=== PATIENT | female | born 1960 | race Caucasian/White ===

== ENCOUNTER → 2020-11-01 | Outpatient (CLI) | payer MEDICARE, OTHER ==
[~2020-11-01] MED LIST: CALCIUM + VITA1 EACH PO; COLACE100 MG PO; DDAVP0.2 MG PO; LACTULOSE20 GM/30 M PO; LIPITOR10 MG PO; MIRALAX17 GM PO; MOBIC15 MG PO; MULTIVITAMINS1 EAC1 PO; PAROXETINE HCL10 MG PO; PROLIA INJ60 MG/1 ML SC; PROTONIX20 MG PO; SEROQUEL XR150 MG PO; TRAZODONE HCL50 MG PO; VITAMIN D250 MCG PO
== END ==
LOC: KOH-I 13:00
DX: R35.0 Frequency of micturition (principal); N32.89 Other specified disorders of bladder
CPT/HCPCS: 76775; 76857

== ENCOUNTER → 2021-07-24 | Outpatient (CLI) | payer MEDICARE, OTHER | LOC: CT 06-27 11:30 | DX: R31.29 Other microscopic hematuria (principal) | CPT/HCPCS: 36415; 82565; 84520; Q9967 ==

== ENCOUNTER → 2021-11-12 | Outpatient (CLI) | payer MEDICARE, OTHER | LOC: MAMO 08:27 | DX: Z12.31 Encounter for screening mammogram for malignant neoplasm of breast (principal); Z13.820 Encounter for screening for osteoporosis; M85.852 Other specified disorders of bone density and structure, left thigh; M85.88 Other specified disorders of bone density and structure, other site | CPT/HCPCS: 77063; 77067; 77080 ==

== ENCOUNTER → 2022-06-05 | Outpatient (CLI) | payer MEDICARE, OTHER ==
[2022-06-05 10:58] LABS: HEMOGLOBIN 13.4 gm/dl (12.3-15.3); RED BLOOD COUNT 4.41 M/UL (4.00-5.10)
[2022-06-05 11:14] LABS: BUN/CREATININE RATIO 25 (0-10)
[2022-06-06 05:08] LABS: THYROXINE (T4) 6.3 ug/dL (4.5-12.0); VITAMIN D, 25-HYDROXY 62.4 ng/mL (30.0-100.0)
== END ==
LOC: LAB 09:42
PROVIDERS: Nurse Practitioner Family
DX: F84.0 Autistic disorder (principal); E78.5 Hyperlipidemia, unspecified; I11.0 Hypertensive heart disease with heart failure; K21.9 Gastro-esophageal reflux disease without esophagitis; E11.9 Type 2 diabetes mellitus without complications; R53.83 Other fatigue; E55.9 Vitamin D deficiency, unspecified
CPT/HCPCS: 80053; 80061; 83036; 84436; 84443; 84480; 85025